=== PATIENT | male | born 1950 | race Caucasian/White ===

== ENCOUNTER 2019-07-08 13:07 | Inpatient (IN) | payer MEDICAID, OTHER ==
[~2019-07-08] VITALS: Ht 182.9 cm; Wt 96.2 kg
[2019-07-08] MEDS ORDERED: KETOROLAC 30MG/ML VIAL IV STA (16:37)
[2019-07-08] MEDS ORDERED: SODIUM CHLORIDE 0.9% 1,000 ML IV ONE (16:37)
[2019-07-08 17:04] LABS: CLARITY URINE CLEAR (CLEAR); COLOR URINE DARK YELLOW (YELLOW); KETONES URINE 3+ (NEGATIVE); LEUKOCYTE ESTERASE URINE NEGATIVE (NEGATIVE); NITRITE URINE NEGATIVE (NEGATIVE); OCCULT BLOOD URINE NEGATIVE (NEGATIVE); PH URINE 5.5 (4.5-8.0); PROTEIN URINE 1+ (NEGATIVE); SPECIFIC GRAVITY URINE 1.029 (1.005-1.030)
[2019-07-08 17:20] LABS: CHLORIDE 105 mEq/L (98-107)
[2019-07-08 17:21] LABS: PROTHROMBIN TIME 10.2 sec (9.6-11.0)
[2019-07-08 17:23] LABS: HEMATOCRIT. 42.9 % (42.0-52.0); HEMOGLOBIN. 14.4 g/dL (14.0-18.0); MEAN CORPUSCULAR HEMOGLOBIN 31.2 pg (28.0-32.0); MEAN CORPUSCULAR VOLUME 92.9 fL (80.0-94.0); PLATELET 285 x1000/uL (130-400); RED BLOOD CELL COUNT 4.61 mill/uL (4.7-6.1); RED CELL DISTRIBUTION WIDTH 15.1 % (11.6-14.6)
[2019-07-08] MEDS ORDERED: POTASSIUM CHLORIDE 20MEQ TABLET SR PO NR (18:00)
[2019-07-08] MEDS: LACTATED RINGERS 1,000 ML IV SCH (18:00)
[2019-07-08] MEDS ORDERED: CLONIDINE 0.1MG TABLET PO PRN (18:00)
[2019-07-08] MEDS ORDERED: LORAZEPAM 0.5MG TABLET PO PRN (18:00)
[2019-07-08] MEDS ORDERED: IPRATROPIUM/ALBUTEROL 0.5-3(2.5)MG/3ML NEB HHN PRN (18:00)
[2019-07-08] MEDS ORDERED: DOCUSATE SODIUM 100MG CAPSULE PO PRN (18:00)
[2019-07-08] MEDS ORDERED: ONDANSETRON HCL 4MG/2ML INJ IV PRN (18:00)
[2019-07-08 18:04] LABS: PLATELET ESTIMATE NORMAL
[2019-07-09 05:40] LABS: HEMATOCRIT. 38.4 % (42.0-52.0); HEMOGLOBIN. 13.2 g/dL (14.0-18.0); MEAN CORPUSCULAR HEMOGLOBIN 31.6 pg (28.0-32.0); MEAN PLATELET VOLUME 9.1 fl (7.4-10.4); PLATELET 260 x1000/uL (130-400); RED BLOOD CELL COUNT 4.18 mill/uL (4.7-6.1); RED CELL DISTRIBUTION WIDTH 14.8 % (11.6-14.6)
[2019-07-09 05:47] LABS: CHLORIDE 111 mEq/L (98-107)
[2019-07-09 07:03] LABS: PLATELET ESTIMATE NORMAL
[2019-07-09] MEDS: HYDROCODONE/ACETAMINOPHEN 5/325MG TABLET PO PRN (07:52)
[2019-07-09 14:24] VITALS: BP 157/87
[2019-07-09 16:00] VITALS: BP 176/87
[2019-07-09] MEDS: ACETAMINOPHEN 325MG TABLET PO PRN (17:08)
[2019-07-09 20:00] VITALS: BP 152/82
[2019-07-09] MEDS: LACTATED RINGERS 1,000 ML IV SCH (20:40)
[2019-07-10] VITALS: BP 143/85
[2019-07-10 04:00] VITALS: BP 148/75
[2019-07-10] MEDS: HYDROCODONE/ACETAMINOPHEN 5/325MG TABLET PO PRN (05:20)
[2019-07-10 08:00] VITALS: BP 138/73
[2019-07-10 12:00] VITALS: BP 140/76
[2019-07-10] MEDS: LACTATED RINGERS 1,000 ML IV SCH ×2 (13:19→23:20)
[2019-07-10 16:00] VITALS: BP_SYST 157; BP_SYST 165; BP_DIAS 83; BP_DIAS 88
[2019-07-10] MEDS: AMLODIPINE 5MG TABLET PO SCH (16:19)
[2019-07-10 20:00] VITALS: BP 151/82
[2019-07-11] VITALS (7 sets, daily range): BP systolic 146–155; BP diastolic 65–85
[2019-07-11 07:13] LABS: BASOPHILS % 0.8 % (0.0-2.0); EOSINOPHILS % 1.4 % (0.0-5.0); HEMATOCRIT. 39.4 % (42.0-52.0); HEMOGLOBIN. 13.3 g/dL (14.0-18.0); LYMPHOCYTES % 19.6 % (20.0-50.0); MEAN CORPUSCULAR HEMOGLOBIN 30.9 pg (28.0-32.0); MEAN CORPUSCULAR VOLUME 91.5 fL (80.0-94.0); MEAN PLATELET VOLUME 9.1 fl (7.4-10.4); MONOCYTES % 11.7 % (2.0-8.0); NEUTROPHILS % 66.5 % (40.0-76.0); PLATELET 218 x1000/uL (130-400); RED CELL DISTRIBUTION WIDTH 14.9 % (11.6-14.6)
[2019-07-11 07:14] LABS: CHLORIDE 101 mEq/L (98-107)
[2019-07-11] MEDS: AMLODIPINE 5MG TABLET PO SCH (09:00)
[2019-07-11] MEDS: LACTATED RINGERS 1,000 ML IV SCH (12:40)
[2019-07-11] MEDS: ACETAMINOPHEN 325MG TABLET PO PRN (13:59)
[2019-07-12] VITALS (7 sets, daily range): BP systolic 119–168; BP diastolic 76–94
[2019-07-12] MEDS: LACTATED RINGERS 1,000 ML IV SCH ×2 (06:54→15:20)
[2019-07-12 06:58] LABS: BASOPHILS % 0.3 % (0.0-2.0); EOSINOPHILS % 1.4 % (0.0-5.0); HEMATOCRIT. 39.9 % (42.0-52.0); HEMOGLOBIN. 13.7 g/dL (14.0-18.0); LYMPHOCYTES % 11.2 % (20.0-50.0); MEAN CORPUSCULAR HEMOGLOBIN 31.2 pg (28.0-32.0); MEAN PLATELET VOLUME 9.5 fl (7.4-10.4); MONOCYTES % 10.3 % (2.0-8.0); NEUTROPHILS % 76.8 % (40.0-76.0); PLATELET 212 x1000/uL (130-400); RED BLOOD CELL COUNT 4.38 mill/uL (4.7-6.1); RED CELL DISTRIBUTION WIDTH 14.7 % (11.6-14.6)
[2019-07-12 07:12] LABS: CHLORIDE 103 mEq/L (98-107)
[2019-07-12] MEDS: AMLODIPINE 5MG TABLET PO SCH (09:19)
[2019-07-12] MEDS ORDERED: AMLO5TAB88 PO (15:16)
[2019-07-12] MEDS: ACETAMINOPHEN 325MG TABLET PO PRN (20:34)
[2019-07-13] VITALS: BP 136/79
[2019-07-13] MEDS: LACTATED RINGERS 1,000 ML IV SCH ×2 (00:18→21:04)
[2019-07-13 04:00] VITALS: BP 124/62
[2019-07-13] MEDS: ACETAMINOPHEN 325MG TABLET PO PRN (05:25)
[2019-07-13 08:00] VITALS: BP 133/75
[2019-07-13] MEDS: AMLODIPINE 5MG TABLET PO SCH (09:12)
[2019-07-13 12:11] VITALS: BP 151/86
[2019-07-13 16:00] VITALS: BP 154/83
[2019-07-13 20:00] VITALS: BP 115/82
[2019-07-14] VITALS: BP 118/80
[2019-07-14 04:00] VITALS: BP 121/79
[2019-07-14 08:25] VITALS: BP 149/82
[2019-07-14] MEDS: LACTATED RINGERS 1,000 ML IV SCH (08:31)
[2019-07-14] MEDS: AMLODIPINE 5MG TABLET PO SCH (08:31)
[2019-07-14] MEDS: SODIUM CHLORIDE 0.9% 1,000 ML IV SCH ×2 (10:08→21:42)
[2019-07-14 11:44] VITALS: BP 125/65
[2019-07-14] MEDS: ACETAMINOPHEN 325MG TABLET PO PRN (12:41)
[2019-07-14 16:00] VITALS: BP 136/71
[2019-07-14 16:27] VITALS: BP 119/40
[2019-07-15] VITALS: BP 138/71
[2019-07-15 04:00] VITALS: BP 146/78
[2019-07-15] MEDS: ACETAMINOPHEN 325MG TABLET PO PRN (04:10)
[2019-07-15 08:00] VITALS: BP 127/67
[2019-07-15] MEDS: AMLODIPINE 5MG TABLET PO SCH (08:12)
[2019-07-15] MEDS ORDERED: POLYETHYLENE GLYCOL 3350 (17GM) 1 DOSE PACK PO SCH (10:00)
[2019-07-15] MEDS ORDERED: POLYETHYLENE GLYCOL 3350 (17GM) 1 DOSE PACK PO PRN (10:30)
[2019-07-15] MEDS: SODIUM CHLORIDE 0.9% 1,000 ML IV SCH ×2 (11:22→22:39)
[2019-07-15 11:51] VITALS: BP 120/63
[2019-07-15 16:00] VITALS: BP 143/79
[2019-07-16] VITALS: BP 132/72
[2019-07-16 04:46] VITALS: BP 107/71
[2019-07-16] MEDS: ACETAMINOPHEN 325MG TABLET PO PRN (07:51)
[2019-07-16 08:00] VITALS: BP 113/65
[2019-07-16] MEDS: AMLODIPINE 5MG TABLET PO SCH (08:43)
[2019-07-16 12:00] VITALS: BP 128/70
[2019-07-16 16:00] VITALS: BP 118/62
[2019-07-16 20:00] VITALS: BP 103/61
[2019-07-17] VITALS: BP 113/88
[2019-07-17 04:00] VITALS: BP 132/67
[2019-07-17 08:00] VITALS: BP 136/73
[2019-07-17] MEDS: AMLODIPINE 5MG TABLET PO SCH (08:54)
[2019-07-17] MEDS: ACETAMINOPHEN 325MG TABLET PO PRN (08:58)
[2019-07-17 12:00] VITALS: BP 130/70
[2019-07-17 16:00] VITALS: BP 125/59
[2019-07-17 20:00] VITALS: BP 134/56
[2019-07-18] VITALS: BP_SYST 128; BP_DIAS 70; BP_DIAS 78
[2019-07-18 04:00] VITALS: BP 124/80
[2019-07-18 08:00] VITALS: BP 135/62
[2019-07-18] MEDS: AMLODIPINE 5MG TABLET PO SCH (08:50)
[2019-07-18 12:00] VITALS: BP 124/61
[2019-07-18 16:00] VITALS: BP 134/78
[2019-07-18 20:00] VITALS: BP 139/79
[2019-07-19] VITALS: BP 140/81
[2019-07-19 04:00] VITALS: BP 134/80
[2019-07-19 06:45] LABS: BASOPHILS % 0.5 % (0.0-2.0); EOSINOPHILS % 2.1 % (0.0-5.0); HEMATOCRIT. 39.5 % (42.0-52.0); HEMOGLOBIN. 13.1 g/dL (14.0-18.0); LYMPHOCYTES % 23.8 % (20.0-50.0); MEAN CORPUSCULAR HEMOGLOBIN 30.4 pg (28.0-32.0); MEAN CORPUSCULAR VOLUME 91.5 fL (80.0-94.0); MEAN PLATELET VOLUME 8.5 fl (7.4-10.4); MONOCYTES % 10.6 % (2.0-8.0); PLATELET 361 x1000/uL (130-400); RED BLOOD CELL COUNT 4.31 mill/uL (4.7-6.1); RED CELL DISTRIBUTION WIDTH 14.6 % (11.6-14.6)
[2019-07-19 07:28] LABS: CHLORIDE 104 mEq/L (98-107)
[2019-07-19 07:54] VITALS: BP 120/69
[2019-07-19] MEDS: AMLODIPINE 5MG TABLET PO SCH (08:30)
[2019-07-19] MEDS: ACETAMINOPHEN 325MG TABLET PO PRN ×2 (11:57→22:19)
[2019-07-19 12:00] VITALS: BP 117/63
[2019-07-19 16:00] VITALS: BP 115/72
[2019-07-19 20:00] VITALS: BP 105/55
[2019-07-20] VITALS: BP 107/62
[2019-07-20 04:00] VITALS: BP 127/67
[2019-07-20 08:00] VITALS: BP 122/76
[2019-07-20] MEDS: AMLODIPINE 5MG TABLET PO SCH (09:25)
[2019-07-20 12:00] VITALS: BP 128/64
[2019-07-20 16:00] VITALS: BP 119/71
[2019-07-20 20:00] VITALS: BP 118/56
[2019-07-21] VITALS: BP 117/61
[2019-07-21 04:00] VITALS: BP 102/51
[2019-07-21] MEDS: AMLODIPINE 5MG TABLET PO SCH (08:41)
[2019-07-21 20:00] VITALS: BP 109/60
[2019-07-22] VITALS: BP 102/60
[2019-07-22 04:00] VITALS: BP 137/75
[2019-07-22 08:00] VITALS: BP 117/65
[2019-07-22] MEDS: AMLODIPINE 5MG TABLET PO SCH (09:42)
[2019-07-22 12:00] VITALS: BP 121/67
[2019-07-22 16:00] VITALS: BP 128/74
[2019-07-22] MEDS: ACETAMINOPHEN 325MG TABLET PO PRN (16:03)
[2019-07-22 20:00] VITALS: BP 108/54
[2019-07-23] VITALS: BP 128/65
[2019-07-23 04:00] VITALS: BP 139/73
[2019-07-23 08:00] VITALS: BP 129/79
[2019-07-23] MEDS: AMLODIPINE 5MG TABLET PO SCH (08:32)
[2019-07-23 12:00] VITALS: BP 105/58
[2019-07-23 16:00] VITALS: BP 106/64
[2019-07-23 20:00] VITALS: BP 120/70
[2019-07-23] MEDS: ACETAMINOPHEN 325MG TABLET PO PRN (20:40)
[2019-07-24] VITALS: BP 119/76
[2019-07-24 04:00] VITALS: BP 101/68
[2019-07-24 08:00] VITALS: BP 120/71
[2019-07-24] MEDS: AMLODIPINE 5MG TABLET PO SCH (08:10)
[2019-07-24 12:00] VITALS: BP 105/53
[2019-07-24 16:00] VITALS: BP 123/75
[2019-07-24] MEDS: ACETAMINOPHEN 325MG TABLET PO PRN (16:46)
[2019-07-24 20:00] VITALS: BP 110/63
[2019-07-25] VITALS: BP 122/69
[2019-07-25 04:00] VITALS: BP 112/67
[2019-07-25 08:00] VITALS: BP 135/71
[2019-07-25] MEDS: AMLODIPINE 5MG TABLET PO SCH (09:03)
[2019-07-25] MEDS: ACETAMINOPHEN 325MG TABLET PO PRN (09:03)
[2019-07-25 12:00] VITALS: BP 121/78
[2019-07-25 16:00] VITALS: BP 122/68
[2019-07-25 20:00] VITALS: BP 124/75
[2019-07-26] MEDS: AMLODIPINE 5MG TABLET PO SCH (10:17)
[2019-07-26 12:00] VITALS: BP 115/66
[2019-07-26] MEDS: ACETAMINOPHEN 325MG TABLET PO PRN (12:10)
[2019-07-26 16:00] VITALS: BP 116/75
[2019-07-26 20:00] VITALS: BP 114/64
[2019-07-27 08:00] VITALS: BP 126/81
[2019-07-27] MEDS: AMLODIPINE 5MG TABLET PO SCH (08:39)
[2019-07-27 12:00] VITALS: BP 124/66
[2019-07-27 12:36] VITALS: BP 124/66
[2019-07-27 16:00] VITALS: BP 119/64
[2019-07-27 16:14] VITALS: BP 116/64
[2019-07-27 20:00] VITALS: BP 126/72
[2019-07-28] VITALS: BP 129/59
[2019-07-28 04:00] VITALS: BP 106/60
[2019-07-28 08:00] VITALS: BP 128/77
[2019-07-28] MEDS: AMLODIPINE 5MG TABLET PO SCH (08:21)
[2019-07-28] MEDS: ACETAMINOPHEN 325MG TABLET PO PRN (11:41)
[2019-07-28 12:00] VITALS: BP 105/67
[2019-07-28 16:00] VITALS: BP 109/67
[2019-07-28 20:00] VITALS: BP 115/68
[2019-07-29 04:00] VITALS: BP 127/73
[2019-07-29 08:00] VITALS: BP 129/69
[2019-07-29] MEDS: AMLODIPINE 5MG TABLET PO SCH (08:56)
[2019-07-29 12:00] VITALS: BP 120/62
[2019-07-29] MEDS: ACETAMINOPHEN 325MG TABLET PO PRN (15:59)
[2019-07-29 16:00] VITALS: BP 119/70
[2019-07-29 20:00] VITALS: BP 119/71
[2019-07-30] VITALS: BP 120/72
[2019-07-30 04:00] VITALS: BP 121/62
[2019-07-30 08:00] VITALS: BP 125/70
[2019-07-30] MEDS: AMLODIPINE 5MG TABLET PO SCH (08:41)
[2019-07-30 16:00] VITALS: BP 122/59
[2019-07-30 20:00] VITALS: BP 113/65
[2019-07-31] VITALS: BP 118/70
[2019-07-31 04:00] VITALS: BP 120/66
[2019-07-31 08:00] VITALS: BP 110/67
[2019-07-31] MEDS: AMLODIPINE 5MG TABLET PO SCH (09:17)
[2019-07-31 12:00] VITALS: BP 103/61
[2019-07-31] MEDS: ACETAMINOPHEN 325MG TABLET PO PRN (13:07)
[2019-07-31 16:00] VITALS: BP 109/66
[2019-07-31 20:00] VITALS: BP 102/60
[2019-08-01] VITALS: BP 119/69
[2019-08-01 04:00] VITALS: BP 131/68
[2019-08-01 08:00] VITALS: BP 123/67
[2019-08-01] MEDS: AMLODIPINE 5MG TABLET PO SCH (08:24)
[2019-08-01 12:00] VITALS: BP 108/60
[2019-08-01 16:00] VITALS: BP 110/72
[2019-08-01 20:00] VITALS: BP 116/65
[2019-08-01] MEDS: ACETAMINOPHEN 325MG TABLET PO PRN (21:35)
[2019-08-02] VITALS: BP 126/70
[2019-08-02 04:00] VITALS: BP 121/63
[2019-08-02 08:00] VITALS: BP 128/72
[2019-08-02] MEDS: AMLODIPINE 5MG TABLET PO SCH (09:14)
[2019-08-02 12:00] VITALS: BP 132/70
[2019-08-02 16:00] VITALS: BP 133/73
[2019-08-02 20:26] VITALS: BP 123/63
[2019-08-02] MEDS: ACETAMINOPHEN 325MG TABLET PO PRN (21:10)
[2019-08-03] VITALS: BP 115/61
[2019-08-03 04:00] VITALS: BP 108/60
[2019-08-03 08:00] VITALS: BP 131/70
[2019-08-03] MEDS: AMLODIPINE 5MG TABLET PO SCH (08:28)
[2019-08-03 12:00] VITALS: BP 115/62
[2019-08-03 16:00] VITALS: BP 124/63
[2019-08-03 20:00] VITALS: BP 131/74
[2019-08-04] VITALS: BP 121/57
[2019-08-04 04:00] VITALS: BP 120/64
[2019-08-04 08:00] VITALS: BP 123/70
[2019-08-04] MEDS: AMLODIPINE 5MG TABLET PO SCH (08:50)
[2019-08-04 12:00] VITALS: BP 114/58
[2019-08-04 16:00] VITALS: BP 116/71
[2019-08-04 20:00] VITALS: BP 111/67
[2019-08-04] MEDS: ACETAMINOPHEN 325MG TABLET PO PRN (20:42)
[2019-08-05] VITALS: BP 113/54
[2019-08-05 04:00] VITALS: BP 104/56
[2019-08-05] MEDS: AMLODIPINE 5MG TABLET PO SCH (09:36)
[2019-08-05] MEDS: ACETAMINOPHEN 325MG TABLET PO PRN ×2 (12:25→21:54)
[2019-08-05 20:00] VITALS: BP 137/74
[2019-08-05] MEDS ORDERED: ONDANSETRON HCL 4MG/2ML INJ IV PRN (20:30)
[2019-08-05] MEDS ORDERED: CLONIDINE 0.1MG TABLET PO PRN (20:30)
[2019-08-05] MEDS ORDERED: IPRATROPIUM/ALBUTEROL 0.5-3(2.5)MG/3ML NEB HHN PRN (20:30)
[2019-08-06] VITALS: BP 126/71
[2019-08-06 08:00] VITALS: BP 141/74
[2019-08-06] MEDS: AMLODIPINE 5MG TABLET PO SCH (09:40)
[2019-08-06 12:00] VITALS: BP 123/64
[2019-08-06 16:00] VITALS: BP 121/64
[2019-08-06] MEDS: ACETAMINOPHEN 325MG TABLET PO PRN (18:03)
[2019-08-06 20:00] VITALS: BP 112/70
[2019-08-06] MEDS: DOCUSATE SODIUM 100MG CAPSULE PO PRN (21:37)
[2019-08-07] VITALS: BP 115/65
[2019-08-07 04:00] VITALS: BP 127/61
[2019-08-07 08:00] VITALS: BP 132/75
[2019-08-07] MEDS: AMLODIPINE 5MG TABLET PO SCH (08:38)
[2019-08-07 12:00] VITALS: BP 123/71
[2019-08-07 16:00] VITALS: BP 114/62
[2019-08-07 20:00] VITALS: BP 128/65
[2019-08-08] VITALS: BP 125/67
[2019-08-08 04:00] VITALS: BP 134/77
[2019-08-08 08:00] VITALS: BP 134/71
[2019-08-08 12:00] VITALS: BP 117/67
[2019-08-08 16:00] VITALS: BP 133/67
[2019-08-08] MEDS: ACETAMINOPHEN 325MG TABLET PO PRN (18:05)
[2019-08-08 20:00] VITALS: BP 120/61
[2019-08-09] VITALS: BP 114/67
[2019-08-09 04:00] VITALS: BP 134/65
[2019-08-09 08:00] VITALS: BP 118/65
[2019-08-09 12:00] VITALS: BP 123/72
[2019-08-09 16:00] VITALS: BP 114/72
[2019-08-09 20:00] VITALS: BP 106/73
[2019-08-10] VITALS: BP 119/66
[2019-08-10 04:00] VITALS: BP 130/63
[2019-08-10 08:00] VITALS: BP 136/71
[2019-08-10 12:00] VITALS: BP 136/71
[2019-08-10] MEDS: ACETAMINOPHEN 325MG TABLET PO PRN (13:53)
[2019-08-10 16:00] VITALS: BP 137/76
[2019-08-10 20:25] VITALS: BP 122/63
[2019-08-11] VITALS: BP 135/70
[2019-08-11 04:00] VITALS: BP 125/80
[2019-08-11 08:00] VITALS: BP 128/78
[2019-08-11 12:00] VITALS: BP 120/70
[2019-08-11 16:00] VITALS: BP 128/73
[2019-08-11 20:00] VITALS: BP 117/65
[2019-08-12] VITALS: BP 125/74
[2019-08-12 04:00] VITALS: BP 117/69
[2019-08-12 08:00] VITALS: BP 115/54
[2019-08-12 12:00] VITALS: BP 121/63
[2019-08-12 16:00] VITALS: BP 103/54
[2019-08-12 20:00] VITALS: BP 135/75
[2019-08-13] VITALS: BP 129/79
[2019-08-13 04:00] VITALS: BP 144/85
[2019-08-13 08:00] VITALS: BP 135/75
[2019-08-13 12:00] VITALS: BP 113/65
[2019-08-13 16:00] VITALS: BP 127/79
[2019-08-13 20:00] VITALS: BP 120/67
[2019-08-13] MEDS: ACETAMINOPHEN 325MG TABLET PO PRN (22:07)
[2019-08-14] VITALS: BP 115/70
[2019-08-14 04:00] VITALS: BP 130/71
[2019-08-14 08:00] VITALS: BP 137/74
[2019-08-14 12:00] VITALS: BP 125/70
[2019-08-14 16:00] VITALS: BP 127/76
[2019-08-14 20:00] VITALS: BP 124/71
[2019-08-15] VITALS: BP 127/75
[2019-08-15 04:00] VITALS: BP 142/78
[2019-08-15 08:00] VITALS: BP 131/73
[2019-08-15 11:28] VITALS: BP 131/74
[2019-08-15] MEDS: DOCUSATE SODIUM 100MG CAPSULE PO PRN (12:48)
[2019-08-15] MEDS: ACETAMINOPHEN 325MG TABLET PO PRN (16:15)
== END 2019-08-15 16:35 | disposition hospice, inpatient (51) | DRG 861 ==
LOC: ER 13:07 → 7WST 17:49 → ENRESERV 07-09 12:20 → 8WST 07-16 05:29 → 6EST 07-18 10:42
PROVIDERS: ADMIT Internal Medicine; ATTEND Internal Medicine
DX: R53.1 Weakness (principal); E46 Unspecified protein-calorie malnutrition; L89.316 Pressure-induced deep tissue damage of right buttock; L89.323 Pressure ulcer of left buttock, stage 3; R62.7 Adult failure to thrive; I10 Essential (primary) hypertension; R55 Syncope and collapse; Z91.81 History of falling; Z68.28 Body mass index [BMI] 28.0-28.9, adult; E87.6 Hypokalemia
CPT/HCPCS: 36415; 71045; 72170; 80048; 80053; 81003; 82550; 82962; 83735; 84100; 84134; 84484; 85025; 93005; 93970; 97110; 97116; 97162; 97166; 97530; 97535; 99285; A6261; J1885; J7030